=== PATIENT | female | born 1985 | race African-American/Black ===

== ENCOUNTER 2016-11-04 13:09 | Emergency (ER) | payer OTHER ==
[2016-11-04 14:53] LABS: Bilirubin Negative (Negative); Blood, Urine Negative (Negative); Glucose, Urine (Dipstick) Negative (Negative); Ketone, Urine Negative (Negative); Nitrite Negative (Negative); Protein, Urine (Dipstick) 30 mg/dL (Neg-Trace); Urobilinogen 0.2 mg/dL (0.2-1.0)
[2016-11-04 14:59] LABS: Bacteria/HPF Rare-Few HPF (None Seen); RBC/HPF None Seen HPF (0-3); Squamous Epithelial 0-3 HPF (0-3); WBC/HPF 0-3 HPF (0-3)
--- NOTE | 2016-11-04 16:35 | ERRECORD ---
[facility] EMERGENCY RECORD HPI COUGH (22:55 JLOY) CHIEF COMPLAINT: Patient presents for evaluation of cough, Patient presents for evaluation of Pt with cough and congestion for 1 week. Concerned because she is on multiple immunosupressants. Pt also noticed some sharp lower abd pain similar to her previous episodes of ovarian cysts. HISTORIAN: History provided by patient. TIME COURSE: Patient unable to describe onset of symptoms, There has been no change in the patient's symptoms over time, are intermittent. ASSOCIATED WITH: No associated chest pain, No associated chills, No associated diarrhea, No associated dyspnea on exertion, No associated fever, No associated nausea, No associated pleuritic symptoms, Associated with upper respiratory infection. EXACERBATED BY: Patient's condition exacerbated by nothing. RELIEVED BY: Patient's condition relieved by nothing. ROS (22:57 JLOY) CONSTITUTIONAL: Historian denies chills, denies fever. ENT: Historian reports rhinorrhea, denies sore throat. RESPIRATORY: Historian reports cough, denies shortness of breath, denies sputum. GI: Historian denies abdominal pain, denies diarrhea, denies nausea, denies vomiting. GENITOURINARY FEMALE: Historian denies dysuria, denies frequency, denies hematuria. urine 'smells'. MUSCULOSKELETAL: Historian denies back pain. NEUROLOGIC: Historian denies dizziness, denies headache. PAST MEDICAL HISTORY MEDICAL HISTORY: : RENAL INSUFFICIENCY, Past medical history includes history of diabetes, on insulin, pulmonary disease, pneumonia, hematological history, iron deficiency anemia, GLAUCOMA, collagen vascular disease, Lupus. Notes: hx of requiring a chest tube for 'fluid in lungs' in the past. Has lupus and diabetes., Past medical history includes gastrointestinal disease. (13:46 JPAR) FEMALE SURGICAL HISTORY: fluid removed around lungs. (13:46 JPAR) PSYCHIATRIC HISTORY: DEPRESSION. (13:46 JPAR) SOCIAL HISTORY: Patient drinks socially, rarely, , Patient denies drug use, Patient has no smoking history. (13:46 JPAR) FAMILY HISTORY: Family istory is not significant. (13:46 JPAR) NOTES: Nursing records reviewed, Agree with nursing records. (22:58 JLOY) KNOWN ALLERGIES Bactrim No Known Allergies (Unconfirmed) No Known Drug Allergies (Unconfirmed) &a-1R&a+25V*p+0X*o1069C*c202B*c15G*c2P*p-0X&a-25V&a+1R Name: Sahara Gallego : 1985 F31 MedRec: [id number] AcctNum: [id number] Prepared: Renata Nov 04, 2016 23:04 by Interface Page 1 of 3 pMD [facility] EMERGENCY RECORD sulfamethoxazole (Unconfirmed): Reaction: Swollen Lips trimethoprim (Unconfirmed): Reaction: Swollen Lips CURRENT MEDICATIONS (13:44 JPAR) CellCept: CAPSULE : Strength - 250 mg : ORAL Patient Dose: 4 times a day. predniSONE: TABLET : Strength - 20 mg : ORAL Patient Dose: 1 tab(s) Oral once a day (in the morning). Plaquenil: TABLET : Strength - 200 mg : ORAL Patient Dose: 1 tab(s) Oral once a day (in the morning). HumuLIN 70/30: VIAL (ML) : Strength - 100 unit/mL (70-30) : SUBCUTANEOUS Patient Dose: 10 units Subcutaneous 2 times a day (with meals). latanoprost: DROPS : Strength - 0.005 % : OPHTHALMIC Patient Dose: 1 gtt Eyes Both once a day (at bedtime). Combigan: DROPS : Strength - 0.2 %-0.5 % : OPHTHALMIC Patient Dose: 1 gtt Eyes Both 2 times a day. VITAL SIGNS (13:42 JPAR) VITAL SIGNS: BP: 108/69, Pulse: 83, Resp: 15, Temp: 98.6 (Oral), Pain: 8, O2 sat: 100, Time: 11/04/2016 13:42. PHYSICAL EXAM (22:57 [facility]) CONSTITUTIONAL: Vital Signs Reviewed, Patient appears non toxic, Patient alert and oriented to person, place and time. EYES: Eye exam included findings of eyelids normal to inspection, Pupils equally round and reactive to light, Conjunctiva normal. ENT: Pharynx exam normal, Uvula exam normal, Tonsil exam normal, Mouth exam normal, mucous membranes moist. NECK: Neck exam included findings of normal range of motion, Trachea midline, no cervical adenopathy. RESPIRATORY CHEST: Respiratory exam included findings of no respiratory distress, Breath sounds clear, No wheezing, No rales, No rhonchi. CARDIOVASCULAR: Cardiovascular exam included findings of heart rate regular rate and rhythm, Heart sounds normal. ABDOMEN FEMALE: Abdominal exam included findings of abdomen tender, to the suprapubic region, mild intensity, Bowel sounds normal, Liver normal, Spleen normal, no peritoneal signs, no rigidity, no guarding, no rebound. BACK: Back exam included findings of normal inspection. UPPER EXTREMITY: Upper extremity exam included findings of inspection normal. NEURO: [place] coma scale 15, Neuro exam findings include patient &a-1R&a+25V*p+0X*o3494D*c202B*c15G*c2P*p-0X&a-25V&a+1R Name: Sahara Gallego : 1985 1 MedRec: [id number] AcctNum: [id number] Prepared: Renata Nov 04, 2016 23:04 by Interface Page 2 of 3 pMD [facility] EMERGENCY RECORD oriented to person, place and time, Speech normal. SKIN: Skin exam included findings of skin warm, dry, and normal in color, no rash. PSYCHIATRIC: Normal affect. MEDICATION ADMINISTRATION SUMMARY Drug Name: amoxicillin, Dose Ordered: 500 mg, Route: Oral, Status: Given, Time: 15:15 11/04/2016, Detailed record available in Medication Service section. PROBLEM LIST No recorded problems DIAGNOSIS (15:08 LEILANI) FINAL: PRIMARY: Acute URI, ADDITIONAL: UNSPECIFIED OVARIAN CYSTS. PRESCRIPTION (15:08 LEILANI) amoxicillin: CAPSULE (HARD, SOFT, ETC.) : 500 mg : ORAL : Quantity: 500 Unit: mg Route: ORAL Schedule: 3 times a day Dispense: 10 DAYS May substitute. Refills: No Refills . NOTES: No Refills. DISPOSITION PATIENT: Disposition Type: Discharge, Disposition: *Discharge Home. (15:08 LEILANI) Patient left the department. (15: LM) Hair: LEILANI=MD Arturo, Ino AMATO=ROXANNE Fuller, Artis &a-1R&a+25V*p+0X*s3194E*c202B*c15G*c2P*p-0X&a-25V&a+1R Name: Sahara Gallego : 1985 F31 MedRec: [id number] AcctNum: [id number] Prepared: Renata Nov 04, 2016 23:04 by Interface Page 3 of 3 pMD MTDD
--- NOTE | 2016-11-04 16:37 | PICIS ---
[facility] EMERGENCY RECORD TRIAGE (13:43 JPAR) TRIAGE NOTES: cough off and on for 1 week and runny nose. (13:43 JPAR) PATIENT: NAME: Sahara Gallego, AGE: 31, GENDER: female, : [facility] 1985, TIME OF GREET: TueNov 04, 2016 13:10, PREFERRED LANGUAGE: Bur[place]ian, ETHNICITY: Not or , ECODE BILLING MAP: [facility], SSN: [id number], Zip Code: [address], KG WEIGHT: 78.02, PHONE: , , , PERSON ID: [id number], PCP: [facility]. (13:43 JPAR) COMPLAINT: COUGH/SHARP LOWER ABD PAIN. (13:43 JPAR) ADMISSION: URGENCY: 5 Fast Track, ADMISSION SOURCE: Home, TRANSPORT: CAR, BED: TRIAGE. (13:43 JPAR) ASSESSMENT: Assessment: cough and runny nose off an on for 1 week, Symptoms began 1 week, Symptoms began greater than 1 week ago. (13:46 JPAR) IMMUNIZATIONS: Flu vaccine not up to date, Tetanus not up to date, Pneumococcal vaccine up to date, Date of immunization: 2014. (13:46 JPAR) SIRS SCORING: Heart Rate 55-109 (0), Temp range 96.8-101.1 (0), respiratory rate 12-24 (0), Mental Status altered: no (0), Infection or Suspected Infection: No. (13:46 JPAR) TRIAGE SCREENING: Patient denies suicidal ideation, Patient denies presence of domestic violence. (13:46 JPAR) PROVIDERS: TRIAGE NURSE: Artis Fuller RN. (13:43 JPAR) VITAL SIGNS: BP 108/69, Pulse 83, Resp 15, Temp 98.6, (Oral), Pain 8, O2 Sat 100, Time 11/04/2016 13:42. (13:42 JPAR) PREVIOUS VISIT ALLERGIES: Bactrim. (13:43 JPAR) Bactrim. (13:46 JPAR) KNOWN ALLERGIES Bactrim No Known Allergies (Unconfirmed) No Known Drug Allergies (Unconfirmed) sulfamethoxazole (Unconfirmed): Reaction: Swollen Lips trimethoprim (Unconfirmed): Reaction: Swollen Lips CURRENT MEDICATIONS (13:44 JPAR) CellCept: CAPSULE : Strength - 250 mg : ORAL Patient Dose: 4 times a day. predniSONE: TABLET : Strength - 20 mg : ORAL Patient Dose: 1 tab(s) Oral once a day (in the morning). Plaquenil: TABLET : Strength - 200 mg : ORAL Patient Dose: 1 tab(s) Oral once a day (in the morning). HumuLIN 70/30: VIAL (ML) : Strength - 100 unit/mL (70-30) : SUBCUTANEOUS Patient Dose: 10 units Subcutaneous 2 times a day (with &a-1R&a+25V*p+0X*s5209R*c202B*c15G*c2P*p-0X&a-25V&a+1R Name: Sahara Gallego : 1985 F31 MedRec: [id number] AcctNum: [id number] Prepared: Renata Nov 04, 2016 23:04 by Interface Page [address] [facility] EMERGENCY RECORD meals). latanoprost: DROPS : Strength - 0.005 % : OPHTHALMIC Patient Dose: 1 gtt Eyes Both once a day (at bedtime). Combigan: DROPS : Strength - 0.2 %-0.5 % : OPHTHALMIC Patient Dose: 1 gtt Eyes Both 2 times a day. VITAL SIGNS (13:42 JPAR) VITAL SIGNS: BP: 108/69, Pulse: 83, Resp: 15, Temp: 98.6 (Oral), Pain: 8, O2 sat: 100, Time: 11/04/2016 13:42. NURSING ASSESSMENT: ENT (13:44 JPAR) CONSTITUTIONAL: Patient arrives ambulatory, Gait steady, History obtained from patient, Patient appears comfortable, Patient cooperative, Patient alert, Oriented to person, place and time, Skin warm, Skin dry, Skin normal in color, Mucous membranes pink, Mucous membranes moist, Patient complains of Cough and runny nose, pt states has been off and on for 1 week. RESPIRATORY/CHEST: Breath sounds clear, Respiratory assessment findings include respiratory effort easy, Respirations regular, Conversing normally, Neck and chest exam findings include trachea midline, Chest expansion equal, Chest movement symmetrical, no signs of distress, no retractions noted, no cyanosis, no jugular vein distension, no tenderness to palpation, no crepitus noted, no subcutaneous emphysema noted, no deformity noted, Associated with cough, dry, no associated fever, no associated fume exposure, Notes: runny nose. SAFETY: Side rails up, Cart/Stretcher in lowest position, Call light within reach, Hospital ID band on. NURSING PROCEDURE: DISCHARGE NOTE (15:16 JPAR) DISCHARGE: Patient discharged to home, ambulating without assistance, driving self, unaccompanied, Summary of Care printed/ provided, Patient requested and was provided an electronic copy of Discharge Instructions, Transition record given to patient, Discharge instructions given to patient, Simple or moderate discharge teaching performed, Consume more fluids, Prescriptions given and instructions on side effects given, Name of prescription(s) given: Amoxillin, Medication reconciliation form given, Above person(s) verbalized understanding of discharge instructions and follow-up care, Patient treated and evaluated by physician. BELONGINGS: Belongings and valuables with patient at time of discharge include:, Belongings remain with patient, Valuables remain with patient. SAFETY: Side rails up, Cart/Stretcher in lowest position, Call light within reach, Hospital ID band on. NURSING PROCEDURE: URINE COLLECTION (15:02 JPAR) PATIENT IDENTIFIER: Patient actively involved in identification &a-1R&a+25V*p+0X*w1417A*c202B*c15G*c2P*p-0X&a-25V&a+1R Name: Sahara Gallego : 1985 F31 MedRec: [id number] AcctNum: [id number] Prepared: Renata Nov 04, 2016 23:04 by Interface Page [address] [facility] EMERGENCY RECORD process, Patient's identity verified by patient stating name, Patient's identity verified by patient stating date, Patient's identity verified by hospital ID bracelet. URINE COLLECTION FEMALE: Urine collected by void, output amount (mL) 40, urine yellow in color, and clear, Specimen labeled in the presence of the patient and sent to lab. SAFETY: Side rails up, Cart/Stretcher in lowest position, Call light within reach, Hospital ID band on. ORDER DETAILS Order Name: Test, Urine (BHCG), Status: Active, Time: 14:29 11/04/2016, User: LEILANI, - Ordered for: MD Morris Joshua, - Entered by: MD Morris Joshua - [facility] Nov 04, 2016 14:29, - Quantity: 1, Order Name: Urinalysis with Microscopic, Status: Active, Time: 14:29 11/04/2016, User: LEILANI, - Ordered for: MD Morris Joshua, - Entered by: MD Morris Joshua - [facility] Nov 04, 2016 14:29, - Quantity: 1. MEDICATION ADMINISTRATION SUMMARY Drug Name: amoxicillin, Dose Ordered: 500 mg, Route: Oral, Status: Given, Time: 15:15 11/04/2016, Detailed record available in Medication Service section. MEDICATION SERVICE (15:15 [facility]) amoxicillin: Order: amoxicillin (amoxicillin trihydrate) - Dose: 500 mg : Oral Ordered by: Ino Morris MD Entered by: Ino Morris MD [facility] Nov 04, 2016 15:08 , Acknowledged by: Artis Fuller RN [facility] Nov 04, 2016 15:14 Documented as given by: Artis Fuller RN [facility] Nov 04, 2016 15:15 Patient, Medication, Dose, Route and Time verified prior to administration. Correct patient, time, route, dose and medication confirmed prior to administration, Patient advised of actions and side-effects prior to administration, Allergies confirmed and medications reviewed prior to administration, Patient in position of comfort, Side rails up, Cart in lowest position, Family at bedside, Call light in reach. HPI COUGH (22:55 [facility]) CHIEF COMPLAINT: Patient presents for evaluation of cough, Patient presents for evaluation of Pt with cough and congestion for 1 week. Concerned because she is on multiple immunosupressants. Pt also noticed some sharp lower abd pain similar to her previous episodes of ovarian cysts. HISTORIAN: History provided by patient. TIME COURSE: Patient &a-1R&a+25V*p+0X*j2920X*c202B*c15G*c2P*p-0X&a-25V&a+1R Name: Sahara Gallego : 1985 F31 MedRec: [id number] AcctNum: [id number] Prepared: TueNov 04, 2016 23:04 by Interface Page 3 of 6 pMD [address] [facility] EMERGENCY RECORD unable to describe onset of symptoms, There has been no change in the patient's symptoms over time, are intermittent. ASSOCIATED WITH: No associated chest pain, No associated chills, No associated diarrhea, No associated dyspnea on exertion, No associated fever, No associated nausea, No associated pleuritic symptoms, Associated with upper respiratory infection. EXACERBATED BY: Patient's condition exacerbated by nothing. RELIEVED BY: Patient's condition relieved by nothing. ROS (22:57 JLOY) CONSTITUTIONAL: Historian denies chills, denies fever. ENT: Historian reports rhinorrhea, denies sore throat. RESPIRATORY: Historian reports cough, denies shortness of breath, denies sputum. GI: Historian denies abdominal pain, denies diarrhea, denies nausea, denies vomiting. GENITOURINARY FEMALE: Historian denies dysuria, denies frequency, denies hematuria. urine 'smells'. MUSCULOSKELETAL: Historian denies back pain. NEUROLOGIC: Historian denies dizziness, denies headache. PAST MEDICAL HISTORY MEDICAL HISTORY: : RENAL INSUFFICIENCY, Past medical history includes history of diabetes, on insulin, pulmonary disease, pneumonia, hematological history, iron deficiency anemia, GLAUCOMA, collagen vascular disease, Lupus. Notes: hx of requiring a chest tube for 'fluid in lungs' in the past. Has lupus and diabetes., Past medical history includes gastrointestinal disease. (13:46 JPAR) FEMALE SURGICAL HISTORY: fluid removed around lungs. (13:46 JPAR) PSYCHIATRIC HISTORY: DEPRESSION. (13:46 JPAR) SOCIAL HISTORY: Patient drinks socially, rarely, , Patient denies drug use, Patient has no smoking history. (13:46 JPAR) FAMILY HISTORY: Family istory is not significant. (13:46 JPAR) NOTES: Nursing records reviewed, Agree with nursing records. (22:58 JLOY) PHYSICAL EXAM (22:57 JLOY) CONSTITUTIONAL: Vital Signs Reviewed, Patient appears non toxic, Patient alert and oriented to person, place and time. EYES: Eye exam included findings of eyelids normal to inspection, Pupils equally round and reactive to light, Conjunctiva normal. ENT: Pharynx exam normal, Uvula exam normal, Tonsil exam normal, Mouth exam normal, mucous membranes moist. NECK: Neck exam included findings of normal range of motion, Trachea midline, no cervical adenopathy. RESPIRATORY CHEST: Respiratory exam included findings of no respiratory distress, Breath sounds clear, No wheezing, No rales, No &a-1R&a+25V*p+0X*s6650H*c202B*c15G*c2P*p-0X&a-25V&a+1R Name: Sahara Gallego : 1985 F31 MedRec: [id number] AcctNum: [id number] Prepared: TueNov 04, 2016 23:04 by Interface Page [address] [facility] EMERGENCY RECORD rhonchi. CARDIOVASCULAR: Cardiovascular exam included findings of heart rate regular rate and rhythm, Heart sounds normal. ABDOMEN FEMALE: Abdominal exam included findings of abdomen tender, to the suprapubic region, mild intensity, Bowel sounds normal, Liver normal, Spleen normal, no peritoneal signs, no rigidity, no guarding, no rebound. BACK: Back exam included findings of normal inspection. UPPER EXTREMITY: Upper extremity exam included findings of inspection normal. NEURO: [place] coma scale 15, Neuro exam findings include patient oriented to person, place and time, Speech normal. SKIN: Skin exam included findings of skin warm, dry, and normal in color, no rash. PSYCHIATRIC: Normal affect. EVENTS TRANSFER: Triage to Emergency Triage. (TueNov 04, 2016 13:43 JPAR) Emergency Triage to Emergency Room -02. (13:54 [facility]) Removed from Emergency Emergency Room -02. (15:22 JPAR) PROBLEM LIST No recorded problems DIAGNOSIS (15:08 JLOY) FINAL: PRIMARY: Acute URI, ADDITIONAL: UNSPECIFIED OVARIAN CYSTS. DISPOSITION PATIENT: Disposition Type: Discharge, Disposition: *Discharge Home. (15:08 JLOY) Patient left the department. (15:22 JPAR) INSTRUCTION (15:09 JLOY) DISCHARGE: URI ANTIBIOTIC TREATMENT ADULT, OVARIAN CYST. FOLLOWUP: [facility], [address] [place] [address] , , Follow up with Primary Care Physician in 7-10 days. PRESCRIPTION (15:08 JLOY) amoxicillin: CAPSULE (HARD, SOFT, ETC.) : 500 mg : ORAL : Quantity: 500 Unit: mg Route: ORAL Schedule: 3 times a day Dispense: 10 DAYS May substitute. Refills: No Refills . NOTES: No Refills. IMAGING (15:21 JPAR) *SUPPLY CHARGE SHEET: Image captured from scanner. *DISCHARGE INSTRUCTIONS RECEIPT: Image captured from scanner. &a-1R&a+25V*p+0X*u3131B*c202B*c15G*c2P*p-0X&a-25V&a+1R Name: Sahara Gallego : 1985 F31 MedRec: [id number] AcctNum: [id number] Prepared: TueNov 04, 2016 23:04 by Interface Page [address] [facility] EMERGENCY RECORD ADMIN (22:58 [facility]) DIGITAL SIGNATURE: MD Morris Joshua. RESULTS (15:07 [facility]) LABORATORY: Urinalysis with Microscopic Collection DT: TueNov 04, 2016 14:54, Color Yellow , Range (Yellow), Clarity Clear , Range (Clear), Specific [place], Urine 1.023 , Range (1.002-1.036), pH, Urine 6.5 , Range (5.0-9.0), Leukocyte Negative , Range (Negative), Nitrite Negative , Range (Negative), *Protein, Urine (Dipstick) 30 - H mg/dL, Range (Neg-Trace), Glucose, Urine (Dipstick) Negative mg/dL, Range (Negative), Ketone, Urine Negative mg/dL, Range (Negative), Urobilinogen 0.2 mg/dL, Range (0.2-1.0), Bilirubin Negative , Range (Negative), Blood, Urine Negative , Range (Negative), RBC/HPF None Seen HPF, Range (0-3), WBC/HPF 0-3 HPF, Range (0-3), Squamous Epithelial 0-3 HPF, Range (0-3), Bacteria/HPF Rare-Few HPF, Range (None Seen). Test, Urine (BHCG) Collection DT: TueNov 04, 2016 14:54, Test - Urine (BHCG) NEGATIVE , Range (NEGATIVE), Method of sensitivity- Indeterminant: results should be repeated, after 48 hours. Positive: results may be detected as early as 4-5 days before a first missed menses. Elimination of BHCG-, Elimination following first trimester D&C: 29-44 Days , Elimination following term : 8-24 Days , Specific [place] 1.023 , Range (1.002-1.036), A dilute urine specimen may, not contain medical office representative levels of hCG. If is still, suspected, a first morning urine specimen OR a random blood specimen should, be obtained from the patient 48-72 hours later and re-tested. , . Hair: LEILANI=MD Arturo, Ino AMATO=ROXANNE Fuller, Artis BARBOSABE=Lucero Vega &a-1R&a+25V*p+0X*u5414D*c202B*c15G*c2P*p-0X&a-25V&a+1R Name: Sahara Gallego : 1985 F31 MedRec: [id number] AcctNum: [id number] Prepared: TueNov 04, 2016 23:04 by Interface Page [address] [facility] MEDICATION RECONCILIATION You were seen in the Emergency Department on: TueNov 04, 2016 KNOWN ALLERGIES Bactrim No Known Allergies (Unconfirmed) No Known Drug Allergies (Unconfirmed) sulfamethoxazole (Unconfirmed): Reaction: Swollen Lips trimethoprim (Unconfirmed): Reaction: Swollen Lips MEDICATIONS GIVEN WHILE IN THE EMERGENCY DEPARTMENT amoxicillin (amoxicillin trihydrate) - Dose: 500 milligram(s) : Oral HOME MEDICATIONS CONTINUE PRESCRIBED CellCept : CAPSULE : Strength - 250 mg : ORAL Continue as prescribed Patient had been takin times a day. Combigan : DROPS : Strength - 0.2 %-0.5 % : OPHTHALMIC Continue as prescribed Patient had been takin gtt Eyes Both 2 times a day. HumuLIN 70/30 : VIAL (ML) : Strength - 100 unit/mL (70-30) : SUBCUTANEOUS Continue as prescribed Patient had been takin units Subcutaneous 2 times a day (with meals). latanoprost : DROPS : Strength - 0.005 % : OPHTHALMIC Continue as prescribed Patient had been takin gtt Eyes Both once a day (at bedtime). Plaquenil : TABLET : Strength - 200 mg : ORAL Continue as prescribed Patient had been takin tab(s) Oral once a day (in the morning). predniSONE : TABLET : Strength - 20 mg : ORAL Continue as prescribed Patient had been takin tab(s) Oral once a day (in the morning). PRESCRIPTIONS (1) &a-1R&a+25V*p+0X*w1840F*c202B*c15G*c2P*p-0X&a-25V&a+1R Name: Sahara Gallego : 1985 F31 MedRec: [id number] AcctNum: [id number] Prepared: Renata Nov 04, 2016 23:04 by Interface Darline BALLESTEROS
== END 2016-11-04 15:16 | disposition home or self-care (01) ==
LOC: NAV ERS 13:09
DX: J06.9 Acute upper respiratory infection, unspecified (principal); N83.209 Unspecified ovarian cyst, unspecified side; E11.9 Type 2 diabetes mellitus without complications; Z79.4 Long term (current) use of insulin
CPT/HCPCS: 81001; 81025; 99283

== ENCOUNTER 2017-03-09 20:47 | Emergency (ER) | payer OTHER ==
[2017-03-09 21:26] LABS: Bilirubin Negative (Negative); Blood, Urine Negative (Negative); Glucose, Urine (Dipstick) Negative (Negative); Leukocyte Negative (Negative); Nitrite Negative (Negative); Protein, Urine (Dipstick) Negative (Neg-Trace); Specific Gravity, Urine 1.025 (1.005-1.030); pH, Urine 6.5 (5.0-9.0)
[2017-03-09 21:40] LABS: Clarity SL HAZY (Clear)
[2017-03-09 21:55] LABS: Pregnancy Test - Urine (BHCG) NEGATIVE (NEGATIVE); Pregu Control Bar Appear? YES (CONTROL BAR); Specific Gravity 1.025 (1.002-1.036)
[2017-03-09 21:56] LABS: #Lymphocytes 1.2 thou/uL (1.20-3.40); #Monocytes 0.3 thou/uL (0.11-0.59); #Neutrophils 2.9 thou/uL (1.40-6.50); %Basophils 0.2 % (0.0-1.0); %Eosinophils 0.1 % (0.0-10.0); %Lymphocytes 26.4 % (21.0-51.0); %Monocytes 6.7 % (0.0-10.0); %Neutrophils 66.6 % (42.0-75.0); Mean Corpuscular HGB CONC 31.3 g/dL (32.0-36.0); Mean Corpuscular Hemoglobin 25.8 pg (27.0-31.0); Mean Corpuscular Volume 82.6 fl (81.0-99.0); Mean Platelet Volume 7.1 fL (7.4-10.4); Platelet Count 230 thou/uL (130-400); Red Blood Cell (RBC) Count 3.85 mill/uL (4.20-5.40); White Blood Cell (WBC) Count 4.4 thou/uL (4.8-10.8)
[2017-03-09 22:04] LABS: ALT (SGPT) 18 U/L (8-55); AST (SGOT) 31 U/L (5-34); Albumin 3.8 g/dL (3.5-5.0); Alkaline Phosphatase 113 U/L (40-150); Anion Gap 15 mmol/L (10-20); BUN (Urea Nitrogen) 15 mg/dL (7.0-18.7); Bilirubin, Total 0.2 mg/dL (0.2-1.2); Calc. Creatinine Clearance 0 mL/min (70-130); Calcium 9.3 mg/dL (7.8-10.44); Carbon Dioxide 22 mmol/L (22-29); Chloride 108 mmol/L (98-107); Estimated GFR-MDRD Greater than 90; Globulin 5.9 g/dL (2.4-3.5); Glucose 98 mg/dL (70-105); Protein, Total 9.7 g/dL (6.0-8.3); Sodium 141 mmol/L (136-145)
== END 2017-03-09 22:50 | disposition home or self-care (01) ==
LOC: NAV ERS 20:47
DX: R10.32 Left lower quadrant pain (principal); E11.9 Type 2 diabetes mellitus without complications; M32.9 Systemic lupus erythematosus, unspecified; D50.9 Iron deficiency anemia, unspecified; F32.9 Major depressive disorder, single episode, unspecified; Z79.4 Long term (current) use of insulin; Z79.899 Other long term (current) drug therapy; Z79.52 Long term (current) use of systemic steroids
CPT/HCPCS: 80053; 81003; 81025; 85025; 99284

== ENCOUNTER 2017-07-14 14:17 | Emergency (ER) | payer OTHER ==
[2017-07-14] MEDS ORDERED: Ondansetron ODT 4 MG TAB ONE (14:41)
== END 2017-07-14 14:55 | disposition home or self-care (01) ==
LOC: NAV ERS 14:17
DX: J20.9 Acute bronchitis, unspecified (principal); E11.9 Type 2 diabetes mellitus without complications; D50.0 Iron deficiency anemia secondary to blood loss (chronic); F32.9 Major depressive disorder, single episode, unspecified; Z79.899 Other long term (current) drug therapy; Z79.4 Long term (current) use of insulin
CPT/HCPCS: 99283; Q0162

== ENCOUNTER 2017-11-13 11:14 | Emergency (ER) | payer OTHER | END 2017-11-13 11:43 | disposition home or self-care (01) | LOC: NAV ERS 11:14 | DX: B34.9 Viral infection, unspecified (principal); E11.39 Type 2 diabetes mellitus with other diabetic ophthalmic complication; H40.9 Unspecified glaucoma; F32.9 Major depressive disorder, single episode, unspecified; D50.0 Iron deficiency anemia secondary to blood loss (chronic); Z87.01 Personal history of pneumonia (recurrent); Z79.4 Long term (current) use of insulin; Z79.899 Other long term (current) drug therapy | CPT/HCPCS: 99283 ==

== ENCOUNTER 2017-11-27 16:21 | Emergency (ER) | payer OTHER ==
[2017-11-27] MEDS ORDERED: Ibuprofen 800 MG TAB ONE (16:34)
== END 2017-11-27 16:43 | disposition home or self-care (01) ==
LOC: NAV ERS 16:21
DX: S03.2XXA Dislocation of tooth, initial encounter (principal); S01.511A Laceration without foreign body of lip, initial encounter; E11.9 Type 2 diabetes mellitus without complications; F32.9 Major depressive disorder, single episode, unspecified; M32.9 Systemic lupus erythematosus, unspecified; Z79.4 Long term (current) use of insulin; Z79.899 Other long term (current) drug therapy; W01.198A Fall on same level from slipping, tripping and stumbling with subsequent striking against other object, initial encounter
CPT/HCPCS: 99283

== ENCOUNTER 2018-01-06 23:01 | Emergency (ER) | payer OTHER ==
[~2018-01-06 23:01] MED LIST: Iopamidol 370 76% 100 ML VIAL ONE
[2018-01-06] MEDS ORDERED: Acetaminophen 500 MG TAB ONE (23:58)
[2018-01-07 00:28] LABS: Pregnancy Test - Urine (BHCG) Negative (Negative); Pregu Control Background? CLEAR/WHITE (CLR/WHITE); Pregu Control Bar Appear? YES (CONTROL BAR)
[2018-01-07 00:43] LABS: #Lymphocytes 1.5 thou/uL (1.20-3.40); #Monocytes 0.4 thou/uL (0.11-0.59); #Neutrophils 2.2 thou/uL (1.40-6.50); %Basophils 0.5 % (0.0-1.0); %Eosinophils 0.7 % (0.0-10.0); %Lymphocytes 36.8 % (21.0-51.0); %Monocytes 9.3 % (0.0-10.0); %Neutrophils 52.6 % (42.0-75.0); Hemoglobin 9.3 g/dL (12.0-16.0); Mean Corpuscular HGB CONC 31.8 g/dL (32.0-36.0); Mean Corpuscular Volume 81.8 fl (81.0-99.0); Mean Platelet Volume 7.4 fL (7.4-10.4); Platelet Count 219 thou/uL (130-400); RBC Distribution Width 13.4 % (11.5-14.5); Red Blood Cell (RBC) Count 3.56 mill/uL (4.20-5.40); White Blood Cell (WBC) Count 4.2 thou/uL (4.8-10.8)
[2018-01-07 00:51] LABS: Anion Gap 12 mmol/L (10-20); BUN (Urea Nitrogen) 10 mg/dL (7.0-18.7); Calc. Creatinine Clearance 0 mL/min (70-130); Calcium 9.2 mg/dL (7.8-10.44); Carbon Dioxide 26 mmol/L (22-29); Chloride 103 mmol/L (98-107); Estimated GFR-MDRD Greater than 90; Glucose 85 mg/dL (70-105); Sodium 137 mmol/L (136-145)
--- NOTE | 2018-01-07 08:25 | CT ---
PRELIMINARY REPORT/[facility]/EMERGENCY AFTER HOURS PROCEDURE: EXAM: CT Neck With Intravenous Contrast EXAM DATE/TIME: 01/07/2018 12:59 AM CLINICAL HISTORY: 32 years old, female; Pain; Throat pain; Patient HX: Pt. With 2 weeks of intermittent left sided sore throat. Reports pain with swallowing but able to tolerate liquids well at home. No radiation or migr ation of the pain. + mild nasal congestion. Came to ed because she had pain while eating tonight. TECHNIQUE: Axial computed tomography images of the neck with intravenous contrast. All CT scans at this facility use one or more dose reduction techniques, viz.: automated exposure control; ma/kV adjustment per pa tient size (including targeted exams where dose is matched to indication; i.e. head); or iterative re construction technique. Coronal and sagittal reformatted images were created and reviewed. CONTRAST: 96 mL of ISOVUE 370 administered intravenously. COMPARISON: No relevant prior studies available. FINDINGS: No focal subcutaneous soft tissue swelling. Mildly prominent submandibular, submental and cervical chain lymph nodes. Bulky lymphadenopathy, supr aclavicular and bilateral axillary, with nodes measuring up to 14 mm short axis. Mild retropharyngeal soft tissue swelling without fluid collection or mass. Parapharyngeal and posterior nasopharynx soft tissue planes are symmetric. No asymmetric enlargement or inflammation of the pharyngeal tonsils. Vascular structures of the neck enhance normally. Muscles of mastication and strap muscles of the neck appear normal. Parotid and minor salivary glands are unremarkable. Floor of the mouth and tongue base soft tissues appear normal. Laryngeal structures appear normal. Thyroid gland shows no abnormality. Lung apices are normal. Bony structures are unremarkable for age. IMPRESSION: Suspicion of mild inflammatory or infectious pharyngitis without significant airway compromise or abs cess. Prominent cervical lymphadenopathy and very prominent neck base and axillary lymphadenopathy. Thank you for allowing us to participate in the care of your patient. Dictated and Authenticated by: Kumar Otero MD 01/07/2018 1:45 AM Central Time ([place] & [place]) FINAL REPORT EMERGENCY AFTER HOURS CT SOFT TISSUE NECK WITH IV CONTRAST: Date: 01/06/18 IMPRESSION: I agree with the preliminary interpretation given by Darryn. Retropharyngeal soft tissue swelling with extension to involve the right piriform sinus and supraglottic larynx. No evidence for focal fluid co llection to suggest abscess. Conspicuous by number cervical lymph nodes are present bilaterally. Find ings may reflect an infectious process. Follow-up to include direct visualization is recommended. POS: [facility]
== END 2018-01-07 02:02 | disposition home or self-care (01) ==
LOC: NAV ERS 23:01
DX: J02.9 Acute pharyngitis, unspecified (principal); D50.0 Iron deficiency anemia secondary to blood loss (chronic); F32.9 Major depressive disorder, single episode, unspecified; Z79.899 Other long term (current) drug therapy
CPT/HCPCS: 70491; 80048; 81025; 85025; 87081; 87430

== ENCOUNTER 2018-05-15 18:11 | Emergency (ER) | payer OTHER ==
[2018-05-15 19:41] LABS: Bilirubin Negative (Negative); Blood, Urine Negative (Negative); Clarity Clear (Clear); Glucose, Urine (Dipstick) Negative (Negative); Leukocyte Negative (Negative); Nitrite Positive (Negative); Protein, Urine (Dipstick) 100 mg/dL (Neg-Trace); Urobilinogen 0.2 mg/dL (0.2-1.0)
[2018-05-15 19:43] LABS: Specific Gravity, Urine 1.024 (1.002-1.036)
[2018-05-15 19:54] LABS: Bacteria/HPF 1+ HPF (None Seen); RBC/HPF None Seen HPF (0-3); WBC/HPF None Seen HPF (0-3)
[2018-05-15] MEDS ORDERED: Lidocaine 1% 20 ML MDV ONE (20:09)
[2018-05-15] MEDS ORDERED: Amoxicillin/Potassium Clav 875 MG TAB ONE (20:09)
[2018-05-15] MEDS ORDERED: cefTRIAXone\\ROCEPHIN 1 GM VIAL ONE (20:09)
== END 2018-05-15 21:05 | disposition home or self-care (01) ==
LOC: NAV ERS 18:11
DX: N39.0 Urinary tract infection, site not specified (principal); K02.9 Dental caries, unspecified; E11.9 Type 2 diabetes mellitus without complications; Z79.4 Long term (current) use of insulin; F32.9 Major depressive disorder, single episode, unspecified; Z79.899 Other long term (current) drug therapy
CPT/HCPCS: 81003; 81015; 87086; 96372; J0696; J2001

== ENCOUNTER 2018-07-26 12:15 | Emergency (ER) | payer OTHER | END 2018-07-26 13:06 | disposition home or self-care (01) | LOC: NAV ERS 12:15 | DX: J06.9 Acute upper respiratory infection, unspecified (principal); E11.39 Type 2 diabetes mellitus with other diabetic ophthalmic complication; H42 Glaucoma in diseases classified elsewhere; D50.9 Iron deficiency anemia, unspecified; F32.9 Major depressive disorder, single episode, unspecified; Z79.899 Other long term (current) drug therapy | CPT/HCPCS: 99283 ==

== ENCOUNTER 2018-08-08 14:19 | Emergency (ER) | payer OTHER ==
[2018-08-08 15:06] LABS: Bilirubin Negative (Negative); Blood, Urine Moderate (Negative); Clarity Slightly Cloudy (Clear); Glucose, Urine (Dipstick) Negative (Negative); Leukocyte Moderate (Negative); Nitrite Negative (Negative); Protein, Urine (Dipstick) 100 mg/dL (Neg-Trace); Specific Gravity, Urine 1.025 (1.005-1.030); Urobilinogen 0.2 mg/dL (0.2-1.0)
[2018-08-08 15:16] LABS: Bacteria/HPF 1+ HPF (None Seen); Pregnancy Test - Urine (BHCG) Negative (Negative); Squamous Epithelial 0-3 HPF (0-3)
[2018-08-08 15:17] LABS: Pregu Control Background? CLEAR/WHITE (CLR/WHITE); Pregu Control Bar Appear? YES (CONTROL BAR); Specific Gravity 1.025 (1.002-1.036)
[2018-08-08] MEDS ORDERED: Lidocaine 1% (PF) 30 ML VIAL ONE (15:52)
[2018-08-08] MEDS ORDERED: cefTRIAXone\\ROCEPHIN 1 GM VIAL ONE (15:52)
== END 2018-08-08 16:15 | disposition home or self-care (01) ==
LOC: NAV ERS 14:19
DX: N39.0 Urinary tract infection, site not specified (principal); D50.9 Iron deficiency anemia, unspecified; F32.9 Major depressive disorder, single episode, unspecified; Z79.899 Other long term (current) drug therapy
CPT/HCPCS: 81003; 81015; 81025; 87077; 87086; 87186; 96372; J0696; J2001

== ENCOUNTER 2019-02-06 16:10 | Emergency (ER) | payer OTHER | END 2019-02-06 16:39 | disposition home or self-care (01) | LOC: NAV ERS 16:10 | DX: R22.1 Localized swelling, mass and lump, neck (principal); E11.9 Type 2 diabetes mellitus without complications; D50.9 Iron deficiency anemia, unspecified; F32.9 Major depressive disorder, single episode, unspecified; Z79.899 Other long term (current) drug therapy | CPT/HCPCS: 99282 ==

== ENCOUNTER 2019-03-20 20:42 | Emergency (ER) | payer OTHER ==
[2019-03-20] MEDS ORDERED: Ondansetron ODT 4 MG TAB ONE (21:13)
[2019-03-20] MEDS ORDERED: Dicyclomine 20 MG TAB ONE (21:13)
[2019-03-20] MEDS ORDERED: Acetaminophen 500 MG TAB ONE (21:13)
[2019-03-20] MEDS ORDERED: Lidocaine Viscous Sol 2% 15 ml UD Cup ONE (21:13)
[2019-03-20] MEDS ORDERED: Mag-Al Plus 1200 MG/1200 MG/120 MG/30 ML UDCUP ONE (21:13)
[2019-03-20 21:27] LABS: Bilirubin Negative (Negative); Blood, Urine Negative (Negative); Clarity Clear (Clear); Glucose, Urine (Dipstick) Negative (Negative); Leukocyte Negative (Negative); Nitrite Negative (Negative); Protein, Urine (Dipstick) Negative (Neg-Trace); Specific Gravity, Urine 1.025 (1.005-1.030); Urobilinogen 0.2 mg/dL (0.2-1.0)
[2019-03-20 21:29] LABS: Pregnancy Test - Urine (BHCG) Negative (Negative)
[2019-03-20 21:30] LABS: Pregu Control Background? CLEAR/WHITE (CLR/WHITE); Pregu Control Bar Appear? YES (CONTROL BAR); Specific Gravity 1.025 (1.002-1.036)
== END 2019-03-20 21:55 | disposition home or self-care (01) ==
LOC: NAV ERS 20:42
DX: R10.84 Generalized abdominal pain (principal); R10.10 Upper abdominal pain, unspecified; R19.7 Diarrhea, unspecified; F32.9 Major depressive disorder, single episode, unspecified; R73.03 Prediabetes; D50.0 Iron deficiency anemia secondary to blood loss (chronic); Z87.01 Personal history of pneumonia (recurrent); Z79.899 Other long term (current) drug therapy
CPT/HCPCS: 81003; 81025; 99284; Q0162

== ENCOUNTER 2019-11-01 18:02 | Emergency (ER) | payer OTHER ==
--- NOTE | 2019-11-01 18:47 | RAD ---
Right RIBS 4 views Chest one view HISTORY: Chest pain. FINDINGS: No displaced rib fracture or pneumothorax. Cardiac silhouette and pulmonary vasculature are unremarkable. No lobar consolidation. IMPRESSION: Normal exam.
== END 2019-11-01 19:08 | disposition home or self-care (01) ==
LOC: NAV ERS 18:02
DX: S29.011A Strain of muscle and tendon of front wall of thorax, initial encounter (principal); E11.9 Type 2 diabetes mellitus without complications; D50.9 Iron deficiency anemia, unspecified; M32.9 Systemic lupus erythematosus, unspecified; F32.9 Major depressive disorder, single episode, unspecified; Z79.899 Other long term (current) drug therapy; W18.30XA Fall on same level, unspecified, initial encounter

== ENCOUNTER 2019-11-06 16:08 | Emergency (ER) | payer OTHER ==
--- NOTE | 2019-11-06 17:46 | RAD ---
EXAM: Chest PA and lateral: HISTORY: Hemoptysis COMPARISON: March 25, 2015 FINDINGS: Heart: Normal cardiac silhouette Aorta: Unremarkable Pulmonary vessels: Normal Costophrenic angles: Costophrenic angles are clear. Lungs: No consolidation or masses. Pneumothorax: No pneumothorax Osseous structures: No osseous abnormalities IMPRESSION: No acute cardiopulmonary process.
[2019-11-06] MEDS ORDERED: Ketorolac Tromethamine 60 MG/2 ML VIAL ONE (18:20)
[2019-11-06] MEDS ORDERED: predniSONE 20 MG TAB ONE (18:20)
== END 2019-11-06 18:52 | disposition home or self-care (01) ==
LOC: NAV ERS 16:08
DX: M32.9 Systemic lupus erythematosus, unspecified (principal); M79.10 Myalgia, unspecified site; B34.9 Viral infection, unspecified; R73.03 Prediabetes; E11.9 Type 2 diabetes mellitus without complications; D50.9 Iron deficiency anemia, unspecified; F32.9 Major depressive disorder, single episode, unspecified; Z87.01 Personal history of pneumonia (recurrent); Z79.899 Other long term (current) drug therapy
CPT/HCPCS: 71046; 96372; J1885; J7512

== ENCOUNTER 2019-12-30 12:11 | Emergency (ER) | payer OTHER ==
[2019-12-30] MEDS ORDERED: traMADol HCl 50 MG TAB ONE (12:39)
[2019-12-30] MEDS ORDERED: Lidocaine 1% (PF) 30 ML VIAL ONE (12:39)
== END 2019-12-30 13:27 | disposition home or self-care (01) ==
LOC: NAV ERS 12:11
DX: L02.413 Cutaneous abscess of right upper limb (principal); F32.9 Major depressive disorder, single episode, unspecified; Z79.899 Other long term (current) drug therapy
CPT/HCPCS: 10060; 87070; 87077; 87186; 87205; J2001

== ENCOUNTER 2020-02-07 21:26 | Emergency (ER) | payer OTHER ==
[2020-02-07] MEDS ORDERED: Ondansetron ODT 4 MG TAB ONE (22:09)
== END 2020-02-07 22:25 | disposition home or self-care (01) ==
LOC: NAV ERS 21:26
DX: A08.4 Viral intestinal infection, unspecified (principal); R05 Cough; R73.03 Prediabetes; F32.9 Major depressive disorder, single episode, unspecified; D50.9 Iron deficiency anemia, unspecified; I99.8 Other disorder of circulatory system; Z87.01 Personal history of pneumonia (recurrent); Z79.899 Other long term (current) drug therapy
CPT/HCPCS: 99283; Q0162

== ENCOUNTER 2020-04-29 18:40 | Emergency (ER) | payer OTHER ==
[2020-04-30 13:54] LABS: SARS-CoV-2 MS2 Positive; SARS-CoV-2 N Gene Positive; SARS-CoV-2 S Gene Positive; SARS-CoV-2 orf1ab Positive
== END 2020-04-29 18:57 | disposition home or self-care (01) ==
LOC: NAV ERS 18:40
DX: U07.1 COVID-19 (principal); F32.9 Major depressive disorder, single episode, unspecified; Z79.899 Other long term (current) drug therapy
CPT/HCPCS: 87635; 99283; U0003

== ENCOUNTER 2021-03-06 16:26 | Emergency (ER) | payer OTHER ==
[2021-03-07 00:43] LABS: SARS-CoV-2 PCR by NAA Not Detected (NotDetected)
== END 2021-03-06 16:55 | disposition home or self-care (01) ==
LOC: NAV ERS 16:26
DX: J06.9 Acute upper respiratory infection, unspecified (principal); Z20.822 Contact with and (suspected) exposure to COVID-19; E11.9 Type 2 diabetes mellitus without complications; H40.9 Unspecified glaucoma; M32.9 Systemic lupus erythematosus, unspecified; Z79.4 Long term (current) use of insulin; Z79.899 Other long term (current) drug therapy
CPT/HCPCS: 87635; 99283; U0003; U0005

== ENCOUNTER 2022-11-11 12:10 | Emergency (ER) | payer OTHER ==
[2022-11-11] MEDS ORDERED: Ketorolac Tromethamine 30 MG/ML VIAL ONE (13:04)
[2022-11-11 13:30] LABS: #Lymphocytes 1.6 thou/uL (1.20-3.40); #Monocytes 0.6 thou/uL (0.11-0.59); #Neutrophils 3.3 thou/uL (1.40-6.50); %Basophils 0.5 % (0.0-1.0); %Eosinophils 0.2 % (0.0-10.0); %Lymphocytes 28.5 % (21.0-51.0); %Monocytes 10.9 % (0.0-10.0); %Neutrophils 59.9 % (42.0-75.0); Hemoglobin 8.9 g/dL (12.0-16.0); Mean Corpuscular HGB CONC 31.8 g/dL (32.0-36.0); Mean Corpuscular Hemoglobin 26.7 pg (27.0-31.0); Mean Corpuscular Volume 83.9 fl (78.0-98.0); Mean Platelet Volume 8.3 fL (7.4-10.4); Platelet Count 174 10x3/uL (130-400); RBC Distribution Width 14.5 % (11.5-14.5); Red Blood Cell (RBC) Count 3.35 mill/uL (4.20-5.40); White Blood Cell (WBC) Count 5.5 10x3/uL (4.8-10.8)
[2022-11-11 13:52] LABS: ALT (SGPT) 17 U/L (8-55); AST (SGOT) 18 U/L (5-34); Albumin 3.5 g/dL (3.5-5.0); Alkaline Phosphatase 126 U/L (40-110); Anion Gap 12 mmol/L (10-20); BUN (Urea Nitrogen) 16 mg/dL (7.0-18.7); Bilirubin, Total 0.2 mg/dL (0.2-1.2); Calc. Creatinine Clearance 0 mL/min (70-130); Calcium 9.3 mg/dL (7.8-10.44); Carbon Dioxide 19 mmol/L (22-29); Chloride 109 mmol/L (98-107); Estimated GFR 60; Glucose 84 mg/dL (70-105); Potassium 3.8 mmol/L (3.5-5.1); Protein, Total 9.5 g/dL (6.0-8.3); Sodium 136 mmol/L (136-145)
== END 2022-11-11 16:20 | disposition home or self-care (01) ==
LOC: NAV ERS 12:10
DX: M79.642 Pain in left hand (principal)
CPT/HCPCS: 80053; 85025; 86140; 96372; 99283; J1885

== ENCOUNTER 2023-01-15 22:05 | Emergency (ER) | payer OTHER ==
[2023-01-15] MEDS ORDERED: methylPREDNISolone Sod Succ/PF 125 MG/2 ML VIAL ONE (22:40)
[2023-01-15 22:42] LABS: #Eosinphils 0.1 thou/uL (0.0-0.7); #Lymphocytes 1.3 thou/uL (1.20-3.40); #Monocytes 0.4 thou/uL (0.11-0.59); #Neutrophils 3.6 thou/uL (1.40-6.50); %Basophils 0.4 % (0.0-1.0); %Eosinophils 1.1 % (0.0-10.0); %Lymphocytes 24.1 % (21.0-51.0); %Neutrophils 67.4 % (42.0-75.0); Hemoglobin 7.9 g/dL (12.0-16.0); Mean Corpuscular HGB CONC 31.6 g/dL (32.0-36.0); Mean Corpuscular Hemoglobin 25.6 pg (27.0-31.0); Mean Corpuscular Volume 81.2 fl (78.0-98.0); Mean Platelet Volume 7.9 fL (7.4-10.4); Platelet Count 169 10x3/uL (130-400); Red Blood Cell (RBC) Count 3.07 mill/uL (4.20-5.40); White Blood Cell (WBC) Count 5.3 10x3/uL (4.8-10.8)
[2023-01-15 23:00] LABS: ALT (SGPT) 12 U/L (8-55); AST (SGOT) 20 U/L (5-34); Albumin 3.6 g/dL (3.5-5.0); Alkaline Phosphatase 83 U/L (40-110); Anion Gap 13 mmol/L (10-20); BUN (Urea Nitrogen) 34 mg/dL (7.0-18.7); Bilirubin, Total 0.2 mg/dL (0.2-1.2); CK (CPK) 75 U/L (29-168); Calc. Creatinine Clearance 0 mL/min (70-130); Calcium 9.4 mg/dL (7.8-10.44); Carbon Dioxide 14 mmol/L (22-29); Chloride 112 mmol/L (98-107); Estimated GFR 30; Globulin 6.2 g/dL (2.4-3.5); Glucose 93 mg/dL (70-105); Potassium 4.4 mmol/L (3.5-5.1); Protein, Total 9.8 g/dL (6.0-8.3); Sodium 135 mmol/L (136-145)
== END 2023-01-15 23:53 | disposition home or self-care (01) ==
LOC: NAV ERS 22:05
DX: M32.9 Systemic lupus erythematosus, unspecified (principal); E86.0 Dehydration
CPT/HCPCS: 36415; 80053; 82550; 85025; 96361; 96374; J2930

== ENCOUNTER 2023-07-20 17:14 | Emergency (ER) | payer OTHER ==
[2023-07-20 17:37] LABS: Bilirubin Negative (Negative); Blood, Urine Negative (Negative); Clarity Clear (Clear); Glucose, Urine (Dipstick) Negative (Negative); Ketone, Urine Negative (Negative); Leukocyte Negative (Negative); Nitrite Negative (Negative); Pregnancy Test - Urine (BHCG) Negative (Negative); Protein, Urine (Dipstick) 30 mg/dL (Neg-Trace); Urobilinogen 0.2 mg/dL (Less than 2); pH, Urine 6.5 (5.0-9.0)
[2023-07-20 17:38] LABS: CAUTI Indications for Culture Dysuria,urgency,freq; Pregu Control Background? CLEAR/WHITE (CLR/WHITE); Pregu Control Bar Appear? YES (CONTROL BAR)
[2023-07-20 17:44] LABS: RBC/HPF None Seen HPF (0-3); Squamous Epithelial 21-50 HPF (0-3); WBC/HPF 0-3 HPF (0-3)
[2023-07-20 17:45] LABS: Bacteria/HPF Rare-Few HPF (None Seen); Urine Culture Reflex No No
[2023-07-20] MEDS ORDERED: Ketorolac Tromethamine 30 MG/ML VIAL ONE (17:56)
[2023-07-20] MEDS ORDERED: Sodium Chloride 0.9% 1,000 ML ONE (17:56)
[2023-07-20 18:32] LABS: #Eosinphils 0.1 thou/uL (0.0-0.7); #Lymphocytes 1.5 thou/uL (1.20-3.40); #Monocytes 0.4 thou/uL (0.11-0.59); #Neutrophils 2.6 thou/uL (1.40-6.50); %Basophils 0.3 % (0.0-1.0); %Eosinophils 3.1 % (0.0-10.0); %Lymphocytes 32.6 % (21.0-51.0); %Monocytes 8.5 % (0.0-10.0); %Neutrophils 55.5 % (42.0-75.0); ALT (SGPT) 10 U/L (8-55); AST (SGOT) 20 U/L (5-34); Albumin 3.3 g/dL (3.5-5.0); Alkaline Phosphatase 98 U/L (40-110); Anion Gap 11 mmol/L (10-20); BUN (Urea Nitrogen) 17 mg/dL (7.0-18.7); Bilirubin, Total 0.2 mg/dL (0.2-1.2); Calc. Creatinine Clearance 0 mL/min (70-130); Calcium 9.1 mg/dL (7.8-10.44); Carbon Dioxide 19 mmol/L (22-29); Chloride 111 mmol/L (98-107); Estimated GFR 60; Globulin 6.1 g/dL (2.4-3.5); Glucose 92 mg/dL (70-105); Hematocrit 27.4 % (36.0-47.0); Hemoglobin 8.5 g/dL (12.0-16.0); Mean Corpuscular Hemoglobin 25.8 pg (27.0-31.0); Mean Corpuscular Volume 83.1 fl (78.0-98.0); Mean Platelet Volume 9.4 fL (7.4-10.4); Platelet Count 168 10x3/uL (130-400); Potassium 4.2 mmol/L (3.5-5.1); Protein, Total 9.4 g/dL (6.0-8.3); RBC Distribution Width 15.3 % (11.5-14.5); Sodium 137 mmol/L (136-145); White Blood Cell (WBC) Count 4.7 10x3/uL (4.8-10.8)
[2023-07-20] MEDS ORDERED: methylPREDNISolone Sod Succ/PF 125 MG/2 ML VIAL ONE (20:30)
== END 2023-07-20 20:52 | disposition home or self-care (01) ==
LOC: NAV ERS 17:14
DX: R19.7 Diarrhea, unspecified (principal); M19.031 Primary osteoarthritis, right wrist; I25.2 Old myocardial infarction; E11.39 Type 2 diabetes mellitus with other diabetic ophthalmic complication; H42 Glaucoma in diseases classified elsewhere; M32.9 Systemic lupus erythematosus, unspecified
CPT/HCPCS: 36415; 74177; 80053; 81001; 81025; 85025; 96361; 96374; 96375; J1885; J2930; J7050; Q9967

== ENCOUNTER 2023-10-02 01:32 | Emergency (ER) | payer OTHER ==
[2023-10-02] MEDS ORDERED: Ondansetron ODT 4 MG TAB ONE (02:05)
[2023-10-02] MEDS ORDERED: methylPREDNISolone Sod Succ/PF 125 MG/2 ML VIAL ONE (02:05)
== END 2023-10-02 03:18 | disposition home or self-care (01) ==
LOC: NAV ERS 01:32
DX: B34.9 Viral infection, unspecified (principal); M06.4 Inflammatory polyarthropathy; E11.9 Type 2 diabetes mellitus without complications
CPT/HCPCS: 87804; 96372; 99283; J2930; Q0162